=== PATIENT | male | born 1945 | race Two or more races ===

== ENCOUNTER 2019-02-09 12:48 | Emergency (ER) | payer OTHER, MEDICAID ==
[~2019-02-09] VITALS: Ht 157.5 cm; Wt 81.6 kg
[2019-02-09 14:13] LABS: Urine Bacteria FEW /hpf (None Seen); Urine Blood Negative /uL (Negative); Urine Mucus FEW (None Seen); Urine Specific Gravity 1.014 (1.001-1.035); Urine WBC 2 /hpf (0 - 3)
[2019-02-09 14:24] LABS: Alcohol, Urine < 3.0 mg/dL (0-5); Amphetamine Screen, Urine NEGATIVE (NEGATIVE); Barbiturate Scree,Urine NEGATIVE (NEGATIVE); Benzodiazephine Screen, Urine NEGATIVE (NEGATIVE); Cannabinoid Screen, Urine NEGATIVE (NEGATIVE); Cocaine Screen, Urine NEGATIVE (NEGATIVE); Opiate Scree,Urine NEGATIVE (NEGATIVE); Phencyclidine Screen, Urine NEGATIVE (NEGATIVE)
[2019-02-09] MEDS ORDERED: LORazepam 2MG/ML-1ML VIAL IV ONE (15:00)
[2019-02-09] MEDS ORDERED: ASPirin 81 mg TAB PO ONE (15:00)
[2019-02-09] MEDS ORDERED: MORPHINE SULF INJ 2 MG/ML SYRINGE 1ML IV ONE (15:00)
[2019-02-09] MEDS ORDERED: ONDANSETRON HCL 4 MG/2 ML VIAL IV ONE (15:00)
[2019-02-09] MEDS ORDERED: MORPHINE SULFATE 4 MG/ML SYR/VIAL ONE (15:28)
[2019-02-09 15:38] VITALS: BP 118/40
== END 2019-02-09 16:01 | disposition short-term general hospital (02) ==
LOC: EDBD 12:48 → ER 12:48
DX: S82.202A Unspecified fracture of shaft of left tibia, initial encounter for closed fracture (principal); S82.402A Unspecified fracture of shaft of left fibula, initial encounter for closed fracture; E11.9 Type 2 diabetes mellitus without complications; I10 Essential (primary) hypertension; V43.52XA Car driver injured in collision with other type car in traffic accident, initial encounter; Y93.89 Activity, other specified; Y99.8 Other external cause status; Y92.410 Unspecified street and highway as the place of occurrence of the external cause
CPT/HCPCS: 70450; 71250; 72125; 73080; 73130; 73564; 73590; 74176; 80307; 81001; 93005; 96374; 96375; 99285; J2060; J2270; J2405